=== PATIENT | male | born 1935 | race African-American/Black ===

== ENCOUNTER → 2017-02-09 | Outpatient (CLI) | payer MEDICARE ==
[2017-02-10 10:03] LABS: PSA % FREE 7.5 % (.); PSA FREE 0.82 ng/mL
== END ==
LOC: LAB 12:39
PROVIDERS: ATTEND Urology
DX: N40.1 Benign prostatic hyperplasia with lower urinary tract symptoms (principal); R35.1 Nocturia
CPT/HCPCS: 36415; 84154

== ENCOUNTER → 2017-06-16 | Outpatient (CLI) | payer MEDICARE ==
--- NOTE | 2017-06-17 08:09 | XCELERA REPORT ---
[address] [address] Lower Extremity Venous Evaluation Name: YOVANNY FIGUEREDO Age: 82 yrs Gender: Male : 1935 Patient Status: Preadmit Patient Location: Study Date: 06/16/2017 02:24 PM Procedure: Color flow and duplex imaging bilaterally of the veins of the lower extremities as well as the Common Femoral veins. Reason For Study: SWELLING Ordering Physician: STACIE WATERS Performed By: Joan Metcalf Right Sided Venous Evaluation Reflux noted in the Greater Saphenous vein. Otherwise ormal vessel filling wall to wall, compression and augmentation as well as Colour flow down to the infrageniculate veins. Left Sided Venous Evaluation Normal vessel filling wall to wall, compression and augmentation as well as Colour flow down to the infrageniculate veins. Interpretation Summary No duplex evidence of DVT or obstruction in the bilateral lower extremities. Venous reflux in the right Greater Saphenous vein may account for some symptoms. An elective dedicated reflux study might be considered. : STACIE WATERS > Roscoe Jaime
== END ==
LOC: SP 14:15
PROVIDERS: ATTEND Internal Medicine
DX: R22.43 Localized swelling, mass and lump, lower limb, bilateral (principal)
CPT/HCPCS: 93970

== ENCOUNTER → 2017-07-01 | Outpatient (CLI) | payer MEDICARE ==
[~2017-07-01] MED LIST: AMINOPHYLLINE INJ/PF 250 MG/10 ML SDV IV ONE; REGADENOSON INJ 0.4 MG/5 ML DISP.SYRIN IV ONE
--- NOTE | 2017-07-01 16:58 | DRAGON STRESS TEST REPORT ---
INTRAVENOUS LEXISCAN CARDIOLITE STRESS TEST USING SINGLE PHOTON EMMISION COMPUTERIZED TOMOGRAPHIC. DATE OF PROCEDURE: July 01, 2017, INDICATION : Chest pain CARDIAC RISK FACTORS: Diabetes, hypertension, dyslipidemia RESTING EKG: Sinus rhythm, no baseline ST-T wave changes noted STRESS EKG: No significant changes noted with LexiScan bolus REASON FOR TERMINATION: Protocol. PROCEDURE REPORT: Baseline heart rate 66 beats per minute with blood pressure of 144/87. Patient had no significant complaints. Heart rate at 2 minutes post bolus 76 with a blood pressure of 120/71. 3 minutes post bolus heart rate 74 with blood pressure of 135/82. No significant EKG changes were noted. Patient had no significant complaints during the procedure or postprocedure. Patient injected with Aminophyllin 75 mg at 3 minutes or later after Lexiscan bolus. CONCLUSIONS: Normal EKG and hemodynamic response to IV LexiScan. NUCLEAR DATA: At rest the patient was given 14.17 millicuries of technetium 99 sestamibi injected intravenously. As per protocol rest gated SPECT images were obtained. On day of stress test, the patient was given intravenous LexiScan at a dose of 0.4 mg in 5 mL intravenously, followed by flush with normal saline. Subsequently the stress dose of 39.4 millicuries of technetium 99 sestamibi was injected intravenously. As per protocol stress gated images were obtained. NUCLEAR INTERPRETATION: Both raw and processed data were used for interpretation. Visual, qualitative, computer-generated quantitative data was used. There was good myocardial uptake of technetium compound. Motion artifact and soft tissue attenuations were noted. Increased visceral uptake was noted. No definitive areas of transient perfusion defect noted, No definitive areas of fixed perfusion defect or scars noted. EKG gated imaging showed LV EF at 66 %, rest and stress gated EF similar visually. T. I D. ratio was 0.97. Lung heart ratio noted to be within normal limits 0.34. No significant extracardiac and abnormal radiotracer activities were noted. RV free wall uptake was noted to be WNL. IMPRESSION: Also refer to comments under nuclear interpretation. Also test results needs to be interpreted in the context of pretest probability. 1. No definitive areas of transient perfusion defect noted. 2. There is no definitive scintigraphic evidence of myocardial infarction/scar. 3. EKG gated imaging shows left ventricular ejection fraction of approx. 66 %. 4. Clinical correlation requested as occasionally single vessel disease or balanced ischemia could be missed. In approximately 10% of the cases Lexiscan may not cause adequate vasodilatory stress. RECOMMENDATIONS: Aggressive risk factor modification and medical management. Further evaluation may be needed if continued symptoms or other high risk indicators are noted on clinical evaluation. MTDD
== END ==
LOC: RAD 08:03
PROVIDERS: ATTEND Internal Medicine
DX: R07.9 Chest pain, unspecified (principal); E11.9 Type 2 diabetes mellitus without complications; I10 Essential (primary) hypertension; E78.5 Hyperlipidemia, unspecified
CPT/HCPCS: 93017; 78452; A9500; J2785; J0280; Q9969

== ENCOUNTER → 2018-01-31 | Outpatient (CLI) | payer MEDICARE ==
--- NOTE | 2018-01-31 14:45 | RADIOLOGY REPORT (SQ) ---
EXAM DESCRIPTION: LUMBAR SPINE 2 VIEWS COMPLETED DATE/TIME: 01/31/2018 2:21 pm REASON FOR STUDY: LBP COMPARISON: None. NUMBER OF VIEWS: Two views. TECHNIQUE: AP and lateral radiographic images acquired of the lumbar spine. LIMITATIONS: None. FINDINGS: There are 5 non rib-bearing lumbar type vertebra. Marginal osteophyte formation multiple levels consistent with lumbar spondylosis. Degenerative disc disease at L4-S1. Degenerative scleros is of the apophyseal joints at L4-S1. The SI joints are symmetrical. Vascular calcification of abdo karishma aorta and iliac vessels. IMPRESSION: Lumbar spondylosis. Degenerative disc disease at L4-S1. TECHNICAL DOCUMENTATION: JOB ID: [id number] SC-69 2010 [employer]- All Rights Reserved Reading location - IP/workstation name: [email or web address]
== END ==
LOC: OD 13:55
PROVIDERS: ATTEND Internal Medicine
DX: M54.5 Low back pain (principal); M51.36 Other intervertebral disc degeneration, lumbar region
CPT/HCPCS: 72100

== ENCOUNTER → 2018-11-16 | Outpatient (CLI) | payer MEDICARE ==
--- NOTE | 2018-11-16 10:17 | RADIOLOGY REPORT (SQ) ---
EXAM DESCRIPTION: CT CHEST WITHOUT COMPLETED DATE/TIME: 11/16/2018 9:51 am REASON FOR STUDY: COUGH (R05) R05 COUGH COMPARISON: None. TECHNIQUE: CT scan performed of the chest without intravenous contrast. Images reviewed with lung, soft tissue and bone windows. Reconstructed coronal and sagittal MPR images reviewed. All images st ored on PACS. All CT scanners at this facility use dose modulation, iterative reconstruction, and/or weight based d osing when appropriate to reduce radiation dose to as low as reasonably achievable (ALARA). [facility]: Dose Right [facility]: CareDose [facility]: Dose Right [facility]: Teradose 4D [facility]: [email or web address] RADIATION DOSE: CT Rad equipment meets quality standard of care and radiation dose reduction techniq ues were employed. CTDIvol: 10.5 mGy. DLP: 371 mGy-cm. mGy. LIMITATIONS: No technical limitations. FINDINGS: LUNGS AND PLEURA: No masses, infiltrates, or pneumothorax. No pleural effusions or pleura l calcifications. HILAR AND MEDIASTINAL STRUCTURES: No identified masses or abnormal nodes. No obvious aneurysm. HEART AND VASCULAR STRUCTURES: Cardiomegaly. Aortic valve calcifications. No aneurysm. No pericard ial effusion. UPPER ABDOMEN: Hiatal hernia. Limited exam. THYROID AND OTHER SOFT TISSUES: No masses. No adenopathy. BONES: Nothing acute. HARDWARE: None in the chest. OTHER: No other significant findings. IMPRESSION: No acute findings in the chest. TECHNICAL DOCUMENTATION: JOB ID: [id number] Quality ID # 436: Final reports with documentation of one or more dose reduction techniques (e.g., Au tomated exposure control, adjustment of the mA and/or kV according to patient size, use of iterative reconstruction technique) 2010 [employer]- All Rights Reserved Reading location - IP/workstation name: [email or web address]
== END ==
LOC: RAD 09:38
PROVIDERS: ATTEND Internal Medicine
DX: R05 Cough (principal)
CPT/HCPCS: 71250

== ENCOUNTER → 2019-02-17 | Outpatient (CLI) | payer MEDICARE | LOC: OD 11:24 | PROVIDERS: ATTEND Otolaryngology | DX: J30.9 Allergic rhinitis, unspecified (principal) | CPT/HCPCS: 36415; 82785; 86003 ==

== ENCOUNTER → 2019-02-24 | Outpatient (CLI) | payer MEDICARE ==
--- NOTE | 2019-02-24 11:55 | RADIOLOGY REPORT (SQ) ---
EXAM DESCRIPTION: U/S THYROID/SFT TISS HD NECK COMPLETED DATE/TIME: 02/24/2019 11:27 am REASON FOR STUDY: THYROID FULLNESS (E07.89) J32.9 CHRONIC SINUSITIS, UNSPECIFIED E07.89 OTHER SPEC IFIED DISORDERS OF THYROID COMPARISON: None. TECHNIQUE: Dynamic and static ortiz-scale images acquired of the thyroid gland. Selected additional c olor/power Doppler images recorded. All images stored to PACS. LIMITATIONS: None. FINDINGS: RIGHT LOBE: Normal size. Heterogeneous echotexture. Multiple nodules. The largest measu res 1.2 x 0.9 x 1.1 cm. LEFT LOBE: Normal size. Heterogeneous echotexture. Again several nodules are identified. These are largely solid. The largest measures 1.6 x 1.2 x 0.9 cm. This demonstrates a spongiform appearance. Smaller nodule measured 1.2 cm demonstrates spongiform appearance as well. ISTHMUS: There is a complex cyst in the isthmus measured at 0.8 x 1.1 x 0.5 cm. Homogeneous echotext ure. No cystic or solid masses. OTHER: No other significant finding. IMPRESSION: 1. Heterogeneous echotexture throughout both lobes of the thyroid gland and isthmus. 2. The isthmus lesion corresponds to a TI- RAD 1 lesion and no further workup is necessary. 3. The right lobe lesion is solid. The lesion measures 1.2 x 0.9 x 1.1 cm. This corresponds to a T I-RAD 4 lesion. Based on size this can be followed. 4. 1.6 x 1.2 x 0.9 cm largely hypoechoic nodule in the left lobe. This corresponds to a TI-RAD 4 le alber as well. Based on size FNA is recommended. TECHNICAL DOCUMENTATION: JOB ID: [id number] 2022 [employer]- All Rights Reserved Reading location - IP/workstation name: [email or web address]
--- NOTE | 2019-02-24 15:06 | RADIOLOGY REPORT (SQ) ---
EXAM DESCRIPTION: CT SINUSES FOR ENT COMPLETED DATE/TIME: 02/24/2019 10:19 am REASON FOR STUDY: CHRONIC SINUSITIS (J32.9) J32.9 CHRONIC SINUSITIS, UNSPECIFIED E07.89 OTHER SPEC IFIED DISORDERS OF THYROID COMPARISON: None. TECHNIQUE: Noncontrast scanning through the paranasal sinuses using bone algorithm. Reconstructed MPR images reviewed. All images stored on PACS. All CT scanners at this facility use dose modulation, iterative reconstruction, and/or weight based d osing when appropriate to reduce radiation dose to as low as reasonably achievable (ALARA). [facility]: Dose Right [facility]: CareDose [facility]: Dose Right [facility]: Teradose 4D [facility]: Reveal RADIATION DOSE: 48mGy. LIMITATIONS: None. FINDINGS: Right sinuses and drainage pathways: Post-surgical changes: None. Frontal sinus: Normal. Frontoethmoidal Recess: Normal. Anterior Ethmoid Sinuses: Normal. Posterior Ethmoid Sinuses: Normal. Sphenoid Sinus: Normal. Sphenoethmoidal Recess: Normal. Maxillary Sinus: Normal. Ostiomeatal Complex: Normal. Left Sinuses and Drainage Pathways: Post-Surgical Changes: None. Frontal Sinus: Normal. Frontoethmoidal Recess: Normal. Anterior Ethmoid Sinuses: Normal. Posterior Ethmoid Sinuses: Normal. Sphenoid Sinus: Mild mucous membrane thickening in the left sphenoid sinus and pterygoid recess. Le ft pterygoid recess opacified with a mucus or serous retention cyst on coronal image 30. Sphenoethmoidal Recess: Narrowed by mucous membrane thickening on axial image 95 Maxillary Sinus: Chronic mucoperiosteal thickening around the periphery of the left maxillary sinus with chronic appearing inspissated the right hyperdense secretions in the sinus. Ostiomeatal Complex: Left maxillary sinus outlet is opacified with soft tissue on coronal image 20 Right Olfactory Fossa: No polyps. Left Olfactory Fossa: No polyps. Middle Turbinate Radha Bullosa: Bilateral pneumatized middle turbinatess Paradoxical Middle Turbinate: No. Atelectatic Uncinated Process: No. Frontal Cindy Cell Type I: No Frontal Cindy Cell Type II: No Interfrontal Sinus Septal Cell: None. Suptra-Orbital Ethmoid: No Frontal Bullar Cell: No Suprabullar Bullar Cell: None. Sphenoethmoidal ([place]odi) Cell: None. Pneumatization of the Anterior Clinoid Processes: Bilaterally Hypoplastic Maxillary Sinus: None. Osteoneogenesis: None. Bone Dehiscence:None. Nasal Cavity: Normal. Nasal Septum: Midline Anatomic Variants: Right Vidian Canal: Normal. Left Vidian Canal: Normal. Brain parenchyma in the field of view: Age-appropriate bifrontal and biparietal mild small vessel is chemic change. IMPRESSION: Chronic left maxillary sinus inflammation as above. TECHNICAL DOCUMENTATION: JOB ID: [id number] Quality ID # [id number]: Final reports with documentation of one or more dose reduction techniques (e.g., Au tomated exposure control, adjustment of the mA and/or kV according to patient size, use of iterative reconstruction technique) 2010 [employer]- All Rights Reserved Reading location - IP/workstation name: [email or web address]
== END ==
LOC: RAD 10:04
PROVIDERS: ATTEND Otolaryngology
DX: J32.9 Chronic sinusitis, unspecified (principal); E07.89 Other specified disorders of thyroid
CPT/HCPCS: 70486; 76536

== ENCOUNTER 2019-03-31 09:50 | Emergency (ER) | payer MEDICARE ==
[2019-03-31] MEDS ORDERED: KETOROLAC TROMETHAMINE 60 MG/2 ML SDV IM ONE (12:21)
[2019-03-31] MEDS ORDERED: LIDOCAINE 5% (700 MG) TRANSDERMAL ADH..PATCH TP ONE (12:21)
[2019-03-31] MEDS ORDERED: METHOCARBAMOL 750 MG TABLET PO ONE (12:21)
--- NOTE | 2019-03-31 12:25 | ER Document Report ---
HPI - HPI Time Seen by Provider: 03/31/19 12:11 Pain Level: 2 Notes: Patient is a 83-year-old male presenting with chief complaint of right-sided low back pain. Patient reports no specific injury but states he may have thrown it out while bowling. Patient reports pain is been ongoing for approximately 3 to 4 days. He states he does have a history of chronic back pain but usually gets better with OTC treatments at home. Patient denies any loss of control of his bowels or bladder, denies any urinary retention, denies any saddle anesthesia or fever. Patient otherwise feels well and has not been sick lately. Past Medical History - General Information source: Patient - Social History Smoking Status: Never Smoker Family History: Reviewed & Not Pertinent Patient has suicidal ideation: No Patient has homicidal ideation: No - Past Medical History Cardiac Medical History: Reports: Hx Hypertension - CONTROLLED Denies: Hx Heart Attack Pulmonary Medical History: Denies: Hx Asthma Neurological Medical History: Denies: Hx Cerebrovascular Accident, Hx Seizures GI Medical History: Denies: Hx Hepatitis, Hx Hiatal Hernia, Hx Ulcer Infectious Medical History: Denies: Hx Hepatitis Past Surgical History: Denies: Hx Open Heart Surgery, Hx Pacemaker Vertical Provider Document - CONSTITUTIONAL Notes: PHYSICAL EXAMINATION: GENERAL: Well-appearing, well-nourished and in no acute distress. HEAD: Atraumatic, normocephalic. EYES: Pupils equal round and reactive to light, extraocular movements intact, sclera anicteric, conjunctiva are normal. ENT: Nares patent, oropharynx clear without exudates. Moist mucous membranes. NECK: Normal range of motion, supple without lymphadenopathy LUNGS: Breath sounds clear to auscultation bilaterally and equal. No wheezes rales or rhonchi. HEART: Regular rate and rhythm without murmurs ABDOMEN: Soft, nontender, nondistended abdomen. No guarding, no rebound. No masses appreciated. Musculoskeletal: Normal range of motion, no pitting or edema. No cyanosis. Tenderness to palpation of the lumbar paraspinous region on the right side, no vertebral tenderness, step-off or deformity. NEUROLOGICAL: Cranial nerves grossly intact. Normal speech, normal gait. Normal sensory, motor exams PSYCH: Normal mood, normal affect. SKIN: Warm, Dry, normal turgor, no rashes or lesions noted. - INFECTION CONTROL TRAVEL OUTSIDE OF THE [place] IN LAST 30 DAYS: No Course - Re-evaluation Re-evalutation: Lumbar Spine CT 03/31/19 12:19 IMPRESSION: No acute fracture or malalignment of the lumbar spine. CT of the lumbar spine shows no acute fracture but does show bulging disks at L2-L3 and L5-S1. Patient does report significant improvement of his pain after administration of Toradol, Flexeril and Lidoderm patch here in the ED. Patient will be discharged home in stable condition he will follow-up with his primary care provider in 1 week for a follow-up The patient's emergency department workup and current diagnosis were explained to the patient and or family. Follow-up instructions were provided. Medications if prescribed were discussed. Instructions for when to return to the emergency department including specific worrisome symptoms were discussed with the patient and/or family. - Vital Signs Vital signs: Temp Pulse Resp BP Pulse Ox 97.7 F 71 16 145/80 H 98 03/31/19 09:56 03/31/19 09:56 03/31/19 09:56 03/31/19 09:56 03/31/19 09:56 Discharge - Discharge Clinical Impression: Lumbar herniated disc, Abnormal finding on urinalysis Sciatica Qualifiers: Laterality: right Qualified Code(s): M54.31 - Sciatica, right side Condition: Stable Disposition: HOME, SELF-CARE Additional Instructions: Sciatica Your symptoms suggest "sciatica." The pain of sciatica typically radiates down the leg. Numbness in the foot or calf may also occur. Sciatica is caused by irritation of the sciatic nerve or its branches. The irritation can be due to a herniated disk in the spine, swelling and inflammation in the muscles surrounding the sciatic nerve, or direct injury of the nerve itself. Most cases of sciatica will resolve with medical treatment. Bed rest is usually recommended initially. Surgery is only necessary when the condition will not improve with rest and antiinflammatory medication. Muscle relaxers are often given if muscle soreness is present. A CAT scan of the back may be performed if a herniated disk is suspected. Re-examination is necessary if you develop increasing numbness, localized weakness in the foot or ankle, or if the pain does not respond to rest. Herniated Disc You have a herniated disc. A vertebral disc is a tissue "cushion" between the bones of the spine. When it herniates, a portion bulges out. If it pushes on a nerve, it can cause radiation of pain, numbness, weakness, or tingling in the area served by the affected nerve. Most herniated discs do NOT need surgery. In fact about one-quarter of normal, symptom-free people have at least one herniated disc. Symptoms will usually go away after a few weeks. Rest on a firm surface. Avoid lying on your stomach. If on your back, put a pillow under the knees. If on your side, bend your legs and put a pillow between the knees. Temporarily avoid bending, lifting, and other activity that increases pain. Depending on the severity of symptoms, we may prescribe antiinflammatory medicine such as ibuprofen, corticosteroids, muscle relaxers, or narcotic pain medication. Gentle heat may be used intermittently along the spine. Spinal manipulation or adjustment is usually not recommended for disk herniation. Exercises to strengthen your back and abdominal muscles are prescribed as your symptoms improve. Your doctor will advise you on the proper care at each stage in your recovery. You may be better in a few days -- or healing may take several weeks. Return or call the doctor if you develop severe unrelieved pain, increasing weakness or numbness, or loss of bowel or bladder control. Urinary Tract Infection Your evaluation indicates that you have a urinary tract infection. This is due to germs growing in the bladder. This is a common problem. This infection usually responds quickly to antibiotics. Your antibiotic should be taken exactly as prescribed. Drink plenty of fluids -- three to four quarts a day. Occasionally, a bladder anesthetic will be prescribed to help stop the feeling of urgency until the antibiotic has a chance to clear the infection. This may cause your urine to be dark orange. Certain urine infections require a culture. If the doctor obtained a culture, the results will be back in two days. You should call to see if a change in treatment is needed. A repeat urinalysis after you finish treatment is often recommended. The physician will let you know if further testing is required. Call the doctor if you develop fever, chills, flank pain, inability to urinate, or blood in the urine. Please continue taking all home medications as prescribed. Please continue taking ibuprofen that was prescribed by the urgent care. Please start taking the medications that I have prescribed. No driving while taking the pain medication. Please follow-up with your primary care provider in 1 week for a follow-up, return to the emergency department sooner if worsening. Prescriptions: Cephalexin [Keflex] 500 mg PO BID #10 capsule Hydrocodone/Acetaminophen [[place] 5-325 mg Tablet] 1 tab PO Q6H PRN #14 tablet PRN Reason: Methocarbamol [Robaxin 750 mg Tablet] 750 mg PO Q4 #30 tablet Referrals: THOMAS RUSH MD [Primary Care Provider] - Follow up as needed
--- NOTE | 2019-03-31 13:17 | RADIOLOGY REPORT (SQ) ---
EXAM DESCRIPTION: CT LUMBAR SPINE WITHOUT COMPLETED DATE/TIME: 03/31/2019 12:55 pm REASON FOR STUDY: low back pain COMPARISON: AP and lateral views of the lumbar spine from 01/31/2019 TECHNIQUE: Axial images acquired through the lumbar spine without intravenous contrast. Images revi ewed with lung, soft tissue and bone windows. Reconstructed coronal and sagittal MPR images reviewed . All images stored on PACS. All CT scanners at this facility use dose modulation, iterative reconstruction, and/or weight based d osing when appropriate to reduce radiation dose to as low as reasonably achievable (ALARA). [facility]: Dose Right [facility]: CareDose [facility]: Dose Right [facility]: Teradose 4D [facility]: BATTERIES & BANDS LIMITATIONS: None. FINDINGS: SEGMENTATION: There are 5 lumbar-type vertebral bodies. There is no segmentation abnormal ity of the lumbosacral junction. ALIGNMENT: Grade 1 anterolisthesis of L5 relative to S1. VERTEBRAL BODIES: The lumbar vertebral body heights are preserved. There are Schmorl's nodes at the inferior endplate of L2 and superior endplate of L3. There is no fracture. DISCS: Evaluation is limited due to the absence of intrathecal contrast. The intervertebral discs fr om L2-L3 to L5-S1 are narrowed ; in addition, from L2-L3 to L5-S1 there are disc bulges that encroach on the inferior aspect of the neuroforamina without exerting mass effect on the nerve roots. There is no high-grade spinal stenosis in the lumbar spine. PEDICLES, TRANSVERSE PROCESSES: Intact. FACETS, POSTERIOR ELEMENTS: Degeneration of the facet joints at L4-5 and L5-S1 without foraminal sten osis. HARDWARE: None in the spine. VISUALIZED RIBS: No fractures. SOFT TISSUES: Variant duplicated IVC. OTHER: No other finding. IMPRESSION: No acute fracture or malalignment of the lumbar spine. TECHNICAL DOCUMENTATION: JOB ID: [id number] Quality ID # 436: Final reports with documentation of one or more dose reduction techniques (e.g., Au tomated exposure control, adjustment of the mA and/or kV according to patient size, use of iterative reconstruction technique) 2010 [employer]- All Rights Reserved Reading location - IP/workstation name: [email or web address]
[2019-03-31 13:45] LABS: APPEARANCE,URINE CLEAR; BILIRUBIN,URINE NEGATIVE (NEGATIVE); COLOR,URINE STRAW; GLUCOSE, URINE >=500 mg/dL (NEGATIVE); KETONES,URINE NEGATIVE (NEGATIVE); PROTEIN,URINE NEGATIVE (NEGATIVE); URINE SPECIFIC GRAVITY 1.016; UROBILINOGEN,URINE NEGATIVE mg/dL (<2.0)
[2019-03-31 15:31] VITALS: BP 159/72
== END 2019-03-31 15:30 | disposition home or self-care (01) ==
LOC: ER 09:50
DX: M51.16 Intervertebral disc disorders with radiculopathy, lumbar region (principal); M51.17 Intervertebral disc disorders with radiculopathy, lumbosacral region; R82.90 Unspecified abnormal findings in urine; I10 Essential (primary) hypertension
CPT/HCPCS: 99284; 96372; 87086; 87088; 81001; 72131; J1885; A9270 ×2; J3490

== ENCOUNTER → 2020-03-22 | Day surgery (SDC) | payer MEDICARE ==
--- NOTE | 2020-03-22 14:43 | RADIOLOGY REPORT (SQ) ---
EXAM DESCRIPTION: U/S BIOPSY THYROID IMAGES COMPLETED DATE/TIME: 03/22/2020 2:25 pm REASON FOR STUDY: THYROID FULLNESS E07.89 OTHER SPECIFIED DISORDERS OF THYROID COMPARISON: None. TECHNIQUE: The procedure was discussed with the patient and written informed consent obtained. A ti meout was performed to confirm the procedure and patient's identity. The skin of the neck was preppe d and draped in sterile fashion and 5 cc of 1% lidocaine was administered for local anesthesia. Unde r sonographic guidance, fine needle aspiration biopsy was performed of the ill-defined nodule in the inferior pole of the left lobe of of the thyroid. 3 separate aspirations were performed. Hemostasis was obtained with direct manual compression. Attention was focused on the left lower pole thyroid nodule. Additional 5 cc of 1% lidocaine was adm inistered for local sedation. Under sonographic guidance, fine needle aspiration biopsy was performe d of the nodule in the inferior pole of the right lobe. A total of 2 passes was performed. On-site pathology deemed specimens adequate. There were no immediate complications. LIMITATIONS: None. FINDINGS: PATHOLOGY: Pending. IMPRESSION: ULTRASOUND-GUIDED BIOPSY PERFORMED OF THE LEFT AND RIGHT LOWER POLE THYROID NODULES D ETAILED ABOVE. PATHOLOGY PENDING AT THE TIME OF DICTATION. COMMENT: Patient medication list reviewed: Yes- Quality ID# [id number]:Eligible professional attests to doc umenting in the medical record they obtained, updated, or reviewed the patient's current medications. TECHNICAL DOCUMENTATION: JOB ID: [id number] 2010 [employer]- All Rights Reserved Reading location - IP/workstation name: [email or web address]
== END ==
LOC: RAD 12:45
PROVIDERS: ATTEND Otolaryngology
DX: E07.89 Other specified disorders of thyroid (principal)
CPT/HCPCS: 10005; 88173

== ENCOUNTER 2020-06-13 16:28 | Emergency (ER) | payer MEDICARE ==
[2020-06-13 17:24] VITALS: BP 126/58
--- NOTE | 2020-06-13 19:46 | ER Document Report ---
ED Medical Screen (RME) - General Chief Complaint: Mouth Problem Stated Complaint: MOUTH PAIN Time Seen by Provider: 06/13/20 19:36 Primary Care Provider: CATHERINE AYALA DO [Primary Care Provider] - Follow up as needed Mode of Arrival: Ambulatory Information source: Patient Notes: HPI; 85-year-old male presents to the emergency room complaining of a burning sensation to his tongue and esophagus that happened earlier this evening after eating several slices of pineapple. Patient states he had eaten several slices when he suddenly started having a burning sensation to his tongue and down his esophagus. States he put peroxide on his tongue and then suddenly noticed white spots. He did not swallow the peroxide. He states he feels like there is a burning sensation in his esophagus and upper stomach. Denies any nausea, vomiting, no chest pain, no shortness of breath. Patient states "I am concerned that the burning on my tongue from the pineapple is now in the pit of my stomach." Denies any difficulty swallowing or eating since. No history of food allergies. PE: Alert and oriented x3. Tongue is erythematous with no signs of thrush or irritation. Lungs: Clear to auscultation without rales, rhonchi, wheezes. Heart: Regular rate rhythm without murmurs, rubs, gallops. I have greeted and performed a rapid initial assessment of this patient. A co mprehensive ED assessment and evaluation of the patient, analysis of test results and completion of the medical decision making process will be conducted by additional ED providers. I have specifically instructed the patient or family members with the patient to immediately return to any nursing staff should anything change in the patient's condition or with their chief complaint. TRAVEL OUTSIDE OF THE [place] IN LAST 30 DAYS: No - Related Data Allergies/Adverse Reactions: No Known Allergies Allergy (Verified 03/31/19 10:05) Past Medical History - Past Medical History Cardiac Medical History: Reports: Hx Hypercholesterolemia, Hx Hypertension - CONTROLLED Denies: Hx Heart Attack Pulmonary Medical History: Denies: Hx Asthma Neurological Medical History: Denies: Hx Cerebrovascular Accident, Hx Seizures GI Medical History: Denies: Hx Hepatitis, Hx Hiatal Hernia, Hx Ulcer Infectious Medical History: Denies: Hx Hepatitis Past Surgical History: Denies: Hx Open Heart Surgery, Hx Pacemaker Physical Exam - Vital signs Vitals: Temp Pulse Resp BP Pulse Ox 98.8 F 69 17 126/58 H 96 06/13/20 17:22 06/13/20 17:22 06/13/20 17:22 06/13/20 17:22 06/13/20 17:22 Course - Vital Signs Vital signs: Temp Pulse Resp BP Pulse Ox 98.8 F 69 17 126/58 H 96 06/13/20 17:22 06/13/20 17:22 06/13/20 17:22 06/13/20 17:22 06/13/20 17:22 Doctor's Discharge - Discharge Referrals: CATHERINE AYALA DO [Primary Care Provider] - Follow up as needed
[2020-06-13 20:16] LABS: ABSOLUTE EOSINOPHILS # (AUTO) 0.4 10^3/uL (0.0-0.6); ABSOLUTE LYMPHOCYTES (AUTO) 1.8 10^3/uL (0.5-4.7); ABSOLUTE MONOCYTES (AUTO) 0.5 10^3/uL (0.1-1.4); ABSOLUTE NEUT (AUTO) 2.9 10^3/uL (1.7-8.2); BASOPHILS % (AUTO) 0.2 % (0-2); EOSINOPHILS % (AUTO) 6.4 % (0-6); HEMOGLOBIN 12.4 g/dL (13.5-17.0); LYMPHOCYTES % (AUTO) 32.8 % (13-45); MEAN CORPUSCULAR HEMOGLOBIN 25.6 pg (27.0-33.4); MEAN CORPUSCULAR HGB CONC 32.6 g/dL (32.0-36.0); MEAN CORPUSCULAR VOLUME 78 fl (80-97); MONOCYTES % (AUTO) 8.1 % (3-13); PLATELET COUNT 193 10^3/uL (150-450); RED BLOOD COUNT 4.85 10^6/uL (4.35-5.55); RED CELL DISTRIBUTION WIDTH 15.3 % (11.5-14.0); SEGMENTED NEUTROPHILS % (AUTO) 52.5 % (42-78); TOTAL CELLS COUNTED % (AUTO) 100 %; WHITE BLOOD COUNT 5.6 10^3/uL (4.0-10.5)
[2020-06-13 20:36] LABS: ALKALINE PHOSPHATASE 103 U/L (38-126); ANION GAP 6 (5-19); ASPARTATE AMINO TRANSFERASE 30 U/L (17-59); BILIRUBIN,DIRECT 0.2 mg/dL (0.0-0.4); BILIRUBIN,TOTAL 0.4 mg/dL (0.2-1.3); BLOOD UREA NITROGEN 26 mg/dL (7-20); CALCIUM 9.3 mg/dL (8.4-10.2); CARBON DIOXIDE 32 mmol/L (22-30); CHLORIDE 103 mmol/L (98-107); GLUCOSE 71 mg/dL (75-110); POTASSIUM 3.9 mmol/L (3.6-5.0); TOTAL PROTEIN 7.2 g/dL (6.3-8.2)
--- NOTE | 2020-06-13 20:47 | RADIOLOGY REPORT (SQ) ---
EXAM DESCRIPTION: KUB/ABDOMEN (SINGLE VIEW) [facility]Lex: XR ABDOMEN 1 VIEW (KUB) CLINICAL HISTORY: 85 years Male; abdominal pain ; COMPARISON: None. FINDINGS: There is moderate diffuse colonic fecal retention with only mild distention. No small bowel distention. No pneumatosis. A calcific density in the right lower quadrant is possibly an appendicolith. Bony structures are unremarkable. IMPRESSION: 1. Moderate colonic fecal retention, but no significant bowel distention. 2. Possible appendicolith
--- NOTE | 2020-06-13 20:48 | RADIOLOGY REPORT (SQ) ---
EXAM DESCRIPTION: Site: CHEST 2 VIEWS RP: XR CHEST 2 VIEWS Views: 2 CLINICAL HISTORY: 85 years Male; burning in chest; COMPARISON: None. FINDINGS: Lungs: Lungs are clear, with no focal infiltrate, pneumothorax, or pleural effusion. Mediastinum: Mediastinum is within normal limits for this positioning. Bones: Bony structures are unremarkable. IMPRESSION: 1. No acute cardiothoracic abnormality.
== END 2020-06-13 20:45 | disposition left against medical advice (07) ==
LOC: ER 16:28
DX: K13.79 Other lesions of oral mucosa (principal); R19.8 Other specified symptoms and signs involving the digestive system and abdomen; I10 Essential (primary) hypertension; Z53.20 Procedure and treatment not carried out because of patient's decision for unspecified reasons
CPT/HCPCS: 36415; 71046; 74018; 80053; 85025; 99281